=== PATIENT | male | born 1995 | race Two or more races ===

== ENCOUNTER 2024-02-11 23:44 | Inpatient (IN) | payer MEDICAID ==
[~2024-02-11] VITALS: Ht 170.2 cm; Wt 53.7 kg
[2024-02-12 00:34] LABS: EOSINOPHILS % (AUTO) 5.7 % (1.0-6.0); HEMATOCRIT 48.4 % (41-53); HEMOGLOBIN 15.8 g/dL (13.5-17.5); MEAN CORPUSCULAR HGB CONC 32.7 G/dL (31.0-37.0); MEAN CORPUSCULAR VOLUME 80 fL (80-100); MONOCYTES # (AUTO) 0.9 K/uL (0.1-1.0); NEUTROPHILS # (AUTO) 5.5 K/uL (1.8-7.7); NEUTROPHILS % (AUTO) 61.3 % (40.0-70.0); PLATELET COUNT (AUTO) 407 K/uL (150-450); RED BLOOD CELL COUNT(AUTO) 6.08 MIL/uL (4.50-5.90); RED CELL DISTRIBUTION WIDTH 13.7 % (11.5-14.5)
[2024-02-12 00:48] LABS: ANION GAP 5 mmol/L (8-16); CALCIUM, TOTAL 8.9 mg/dL (8.8-10.5); CARBON DIOXIDE 35 mmol/L (22-29); CHLORIDE 102 mmol/L (98-107); CREATININE 0.94 mg/dL (0.60-1.30); GLOMERULAR FILTR. RATE CALC > 60 mL/min (>60); GLUCOSE,RANDOM 70 mg/dL (70-110); POTASSIUM 3.6 mmol/L (3.5-5.1); SODIUM SERUM 142 mmol/L (136-145); UREA NITROGEN, BLOOD 15 mg/dL (7-18)
[2024-02-12 01:00] LABS: ALCOHOL, BLOOD (SERUM) < 3 mg/dL (0-10)
[2024-02-12 01:43] LABS: ALCOHOL, URINE DRUG SCREEN NEGATIVE (NEGATIVE); AMPHET/METH SCREEN,URINE POSITIVE (NEGATIVE); BARBITURATE SCREEN, URINE NEGATIVE (NEGATIVE); BENZODIAZEPINES SCREEN,URINE NEGATIVE (NEGATIVE); CANNABINOID SCREEN,URINE NEGATIVE (NEGATIVE); COCAINE SCREEN,URINE NEGATIVE (NEGATIVE); METHADONE SCREEN, URINE NEGATIVE (NEGATIVE); OPIATE SCREEN,URINE NEGATIVE (NEGATIVE); PHENCYCLIDINE SCREEN,URINE NEGATIVE (NEGATIVE)
[2024-02-12 02:32] VITALS: O2SAT 100
[2024-02-12 02:48] LABS: COVID AG,FIA SOURCE NASAL SWAB
[2024-02-12 03:12] LABS: SARS-COV2 (COVID) ANTIGEN,FIA Negative (Negative)
[2024-02-12] MEDS ORDERED: OLANZapine 5 MG RAPDIS TABLET PO PRN (04:30)
[2024-02-12] MEDS ORDERED: LORazepam 1 MG TABLET PO PRN (04:30)
[2024-02-12] MEDS ORDERED: ZOLPIDEM TARTRATE 10 MG TABLET PO PRN (04:45)
[2024-02-12] MEDS ORDERED: INFLUENZA VIRUS VACCINE TVS (6MO+) 2024-25/PF 45 MCG/0.5 ML SYRINGE IM. ONE (05:15)
[2024-02-12 05:43] VITALS: BP 128/57; PULSE 77; RESP 18; TEMP 97.7; O2SAT 97
[2024-02-12] MEDS ORDERED: MELATONIN 5 MG TABLET PO PRN (08:00)
[2024-02-12] MEDS ORDERED: MAGNESIUM HYDROXIDE SUSPENSION 30 ML UDCUP PO PRN (08:00)
[2024-02-12] MEDS ORDERED: GuaiFENesin/D-METHORPHAN [SUGAR-FREE] 200-20MG/10 ML SYRUP UDCUP PO PRN (08:00)
[2024-02-12] MEDS ORDERED: HydrOXYzine PAMOATE 50 MG CAPSULE PO PRN (08:00)
[2024-02-12] MEDS ORDERED: ACETAMINOPHEN 325 MG TABLET PO PRN (08:00)
[2024-02-12] MEDS ORDERED: MAG HYDROX/ALUMINUM HYD/SIMETH ES 30 ML SUSPENSION UDCUP PO PRN (08:00)
[2024-02-12] MEDS ORDERED: LOPERAMIDE HCL 2 MG CAPSULE PO PRN (08:00)
[2024-02-12] MEDS ORDERED: PROMETHAZINE HCL 25 MG TABLET PO PRN (08:00)
[2024-02-12] MEDS ORDERED: TUBERCULIN, PURIFIED PROTEIN DERIVATIVE 5 TU/0.1 ML SYRINGE ID ONE (08:00)
[2024-02-12 08:17] VITALS: BP 107/64; PULSE 62; RESP 17; TEMP 97.3; O2SAT 99
[2024-02-12] MEDS: FLUoxetine HCL 20 MG CAPSULE PO SCH (10:45)
[2024-02-12] MEDS: FOLIC ACID 1 MG TABLET PO SCH (10:45)
[2024-02-12] MEDS: MULTIVITAMINS WITH MINERALS, THERAPEUTIC TABLET PO SCH (10:45)
[2024-02-12] MEDS: NALTREXONE HCL 50 MG TABLET PO SCH (10:46)
[2024-02-12] MEDS: THIAMINE 100 MG TABLET PO SCH (10:46)
[2024-02-12] MEDS ORDERED: LURASIDONE HCL 20 MG TABLET PO PRN (14:15)
[2024-02-12] MEDS: LURASIDONE HCL 20 MG TABLET PO SCH (16:28)
[2024-02-12 20:11] VITALS: BP 110/66; PULSE 65; RESP 18; TEMP 97.8; O2SAT 99
[2024-02-12] MEDS ORDERED: OLANZapine 5 MG RAPDIS TABLET PO SCH (21:00)
[2024-02-13 08:28] VITALS: BP 117/77; PULSE 74; RESP 17; TEMP 97.1; O2SAT 99
[2024-02-13 10:12] LABS: HEMOGLOBIN A1C 5.6 % (3.8-5.6)
[2024-02-13 10:31] LABS: CHOL/HDL RATIO 2.6 (4.2-7.3); FREE T4 (FREE THYROXINE) 0.91 ng/dL (0.76-1.46); THYROID STIMULATING HORMONE 0.59 uIU/mL (0.36-3.74)
[2024-02-13 20:37] VITALS: BP 114/58; PULSE 62; RESP 18; TEMP 98; O2SAT 97
[2024-02-14 08:39] VITALS: BP 105/88; PULSE 75; RESP 18; TEMP 97; O2SAT 99
[2024-02-14] MEDS ORDERED: LURA40TA2 PO (16:14)
[2024-02-14] MEDS ORDERED: NALT50TA33 PO (16:14)
[2024-02-14] MEDS ORDERED: MELA5TAB40 PO (16:14)
[2024-02-14] MEDS ORDERED: LURASIDONE HCL 40 MG TABLET PO SCH (17:00)
[2024-02-14] MEDS: LURASIDONE HCL 40 MG TABLET PO SCH (17:13)
[2024-02-14 20:00] VITALS: BP 112/74; PULSE 86; RESP 16; TEMP 97.7; O2SAT 96
[2024-02-15 08:29] VITALS: BP 123/61; PULSE 64; RESP 17; TEMP 97.7; O2SAT 98
[2024-02-15 10:38] LABS: ALCOHOL, URINE DRUG SCREEN NEGATIVE (NEGATIVE); AMPHET/METH SCREEN,URINE NEGATIVE (NEGATIVE); BARBITURATE SCREEN, URINE NEGATIVE (NEGATIVE); BENZODIAZEPINES SCREEN,URINE NEGATIVE (NEGATIVE); CANNABINOID SCREEN,URINE NEGATIVE (NEGATIVE); COCAINE SCREEN,URINE NEGATIVE (NEGATIVE); METHADONE SCREEN, URINE NEGATIVE (NEGATIVE); OPIATE SCREEN,URINE NEGATIVE (NEGATIVE); PHENCYCLIDINE SCREEN,URINE NEGATIVE (NEGATIVE)
== END 2024-02-15 11:10 | disposition home or self-care (01) | DRG 751 ==
LOC: EMS 23:46 → B2S 02-12 04:20
PROVIDERS: ADMIT Psychiatry & Neurology Psychiatry; ATTEND Psychiatry & Neurology Psychiatry
PROC: GZHZZZZ Group Psychotherapy (ICD-10-PCS; principal; 2024-02-13)
PROC: GZ52ZZZ Individual Psychotherapy, Cognitive (ICD-10-PCS; 2024-02-13)
DX: F29 Unspecified psychosis not due to a substance or known physiological condition (principal); F15.90 Other stimulant use, unspecified, uncomplicated; Z20.822 Contact with and (suspected) exposure to COVID-19; Z87.891 Personal history of nicotine dependence
CPT/HCPCS: 80048; 80061; 80307; 83036; 84439; 84443; 85025; 86592; 99285; G0480